=== PATIENT | male | born 1990 | race Caucasian/White ===

== ENCOUNTER 2017-07-14 11:09 | Inpatient (IN) | payer OTHER ==
[2017-07-14 13:40] VITALS: BMI 21.4
--- NOTE | 2017-07-14 13:52 | HP ---
COWS - Scale Resting Pulse: 1= [place] 81-100 Sweatin=Flushed/Facial Moisture Restless Observation: 3= Extraneous Movement Pupil Size: 2= Moderately Dilated Bone or Joint Aches: 2= Severe Diffuse Aches Runny Nose/ Eye Tearin= Runny Nose/Eyes GI Upset > 30mins: 3= Vomiting/Diarrhea Tremor Observation: 2= Slight Tremor Visible Yawning Observation: 2= >3x During Session Anxiety or Irritability: 2=Irritable/Anxious Goose Flesh Skin: 0=Smooth Skin COWS Score: 21 Admission ROS BHS - HPI Chief Complaint: I NEED HELP TO STOP USING PERCOCET OXYCONTIN,KLONOPIN,SEEKING DETOX,WITHDRAWAL SYMPTOM LAST DETOX [facility] 2011 DENIED MEDICAL PROBLEM NICOTINE DEPENDENCE LONGEST PERIOD OF SOBRIETY 3 YEARS CONTUSION OF LEFT ORBIT ON 07/09/17 SEEN AT [facility] Allergies/Adverse Reactions: Allergies Allergy/AdvReac Type Severity Reaction Status Date / Time No Known Allergies Allergy Verified 07/14/17 13:43 History of Present Illness: THIS 26 YEARS OLD MALE WITH PERCOCET XANAX AND MARIJUANA DEPENDENCE SEEKING DETOX MENTIONED ABOVE SEEKING DETOX ANXIETY,DEPRESSION AND INSOMNIA Exam Limitations: No Limitations - Ebola screening Have you traveled outside of the country in the last 21 days: No (N) Have you had contact with anyone from an Ebola affected area: No Have you been sick,other than usual withdrawal symptoms: No Do you have a fever: No - Review of Systems Constitutional: Chills, Diaphoresis, Loss of Appetite, Malaise, Night Sweats, Changes in sleep, Weakness, Unintentional Wgt. Loss EENT: reports: Tearing, Nose Congestion Respiratory: reports: No Symptoms reported Cardiac: reports: No Symptoms Reported GI: reports: Diarrhea, Nausea, Vomiting : reports: No Symptoms Reported Musculoskeletal: reports: Back Pain, Muscle Pain, Muscle Weakness Integumentary: reports: Dryness Neuro: reports: Headache, Tremors Endocrine: reports: No Symptoms Reported Hematology: reports: No Symptoms Reported Psychiatric: reports: No Sypmtoms Reported, Judgement Intact, Mood/Affect Appropiate, Orientated x3 (INSOMNIA), Anxious, Depressed Patient History - Patient Medical History Hx Anemia: No Hx Asthma: No Hx Chronic Obstructive Pulmonary Disease (COPD): No Hx Cancer: No Hx Cardiac Disorders: No Hx Congestive Heart Failure: No Hx Hypertension: No Hx Hypercholesterolemia: No Hx Pacemaker: No HX Cerebrovascular Accident: No Hx Seizures: No Hx Dementia: No Hx Diabetes: No Hx Gastrointestinal Disorders: No Hx Liver Disease: No Hx Genitourinary Disorders: No Hx Sexually Transmitted Disorders: No Hx Renal Disease (ESRD): No Hx Thyroid Disease: No Hx Human Immunodeficiency Virus (HIV): No (NEGATIVE LAST 07/08/17 TO 07/11/17) Hx Hepatitis C: No Hx Depression: Yes (INSOMNIA) Hx Suicide Attempt: No Hx Bipolar Disorder: No Hx Schizophrenia: No Other Medical History: NO SUICIDAL,MO HONICIDAL - Patient Surgical History Past Surgical History: No - Smoking Cessation Smoking history: Current every day smoker Have you smoked in the past 12 months: Yes Aproximately how many cigarettes per day: 3 Cigars Per Day: 0 Hx Chewing Tobacco Use: No Initiated information on smoking cessation: Yes 'Breaking Loose' booklet given: 07/14/17 - Substance & Tx. History Hx Alcohol Use: Yes Hx Substance Use: Yes Substance Use Type: Alcohol, Marijuana, Opiates, Tranquilizers Hx Substance Use Treatment: Yes ([facility] 2003) - Substances Abused Benzodiazepine (Klonopin) Route: Oral Frequency: 1-3 times last 30 days Amount used: 2mg Age of first use: 26 Date of Last Use: 07/13/17 Marijuana/Hashish Route: Smoking Frequency: 1-3 times last 30 days Amount used: 1 blunt Age of first use: 17 Date of Last Use: 06/23/17 percocet/oxycodone Route: Oral Frequency: Daily Amount used: 10-15 pills Age of first use: 20 Date of Last Use: 07/13/17 Family Disease History - Family Disease History Family History: Denies Admission Physical Exam S - Vital Signs Vital Signs: Vital Signs - 24 hr 07/14/17 13:38 Temperature 96.2 F L Pulse Rate 20 L Respiratory 69 H Rate Blood Pressure 114/62 - Physical General Appearance: Yes: Moderate Distress, Tremorous, Irritable, Sweating HEENTM: Yes: Hearing grossly Normal, Normal ENT Inspection, SHARRI, Pharynx Normal Respiratory: Yes: Lungs Clear, Normal Breath Sounds, No Respiratory Distress Neck: Yes: Within Normal Limits, Supple, Trachea in good position Breast: Yes: Within Normal Limits Cardiology: Yes: Within Normal Limits, Regular Rhythm, Regular Rate, S1, S2 Abdominal: Yes: Within Normal Limits, Normal Bowel Sounds, Non Tender, Soft Genitourinary: Yes: Within Normal Limits Back: Yes: Within Normal Limits, Normal Inspection, Muscle Spasm Musculoskeletal: Yes: Within Normal Limits, Back pain, Joint Stiffness, Muscle Pain Extremities: Yes: Tremors Neurological: Yes: clinical consultant II-XII NML intact, Fully Oriented, Alert, Motor Strength 5/5 Integumentary: Yes: Dry Lymphatic: Yes: Within Normal Limits - Diagnostic (1) Opioid dependence with withdrawal Current Visit: Yes Status: Acute (2) Uncomplicated sedative, hypnotic or anxiolytic withdrawal Current Visit: Yes Status: Acute (3) Marijuana dependence Current Visit: Yes Status: Chronic (4) Nicotine dependence Current Visit: Yes Status: Chronic (5) Contusion of left orbit Current Visit: Yes Status: Acute (6) Anxiety and depression Current Visit: Yes Status: Acute Cleared for Admission [facility] - Detox or Rehab [facility] Level of Care: Medically Managed Detox Regimen/Protocol: Methadone [facility] Breath Alcohol Content Breath Alcohol Content: 0 Urine Drug Screen - Results Drug Screen Negative: No Urine Drug Screen Results: THC-Marijuana, BZO-Benzodiazepines, OXY-Oxycodone
[2017-07-14] MEDS ORDERED: MAG HYDROX/AL HYDROX/SIMETH 30 ML UNIT-DOSE CUP PO PRN (14:12)
[2017-07-14] MEDS ORDERED: MAGNESIUM CITRATE 300 ML BOTTLE PO PRN (14:12)
[2017-07-14] MEDS ORDERED: NICOTINE POLACRILEX 2 MG GUM BUC PRN (14:12)
[2017-07-14] MEDS ORDERED: LOPERAMIDE HCL 2 MG CAPSULE PO PRN (14:12)
[2017-07-14] MEDS ORDERED: guaiFENesin/D-METHORPHAN HB 10 ML UNIT-DOSE CUPS PO PRN (14:12)
[2017-07-14] MEDS ORDERED: P-EPHED 60MG/TRIPROLIDI 2.5MG TABLET PO PRN (14:12)
[2017-07-14] MEDS ORDERED: MAGNESIUM HYDROX 2400MG/30ML ORAL SUSPENSION 30 ML CUP PO PRN (14:12)
[2017-07-14] MEDS ORDERED: IBUPROFEN 400 MG TABLET (FP) PO PRN (14:12)
[2017-07-14] MEDS ORDERED: MENTHOL/PHENOL 1 EACH UD MM PRN (14:12)
[2017-07-14] MEDS ORDERED: METHADONE HCL 10 MG TABLET (FOR DETOX USE ONLY) PO ONE ×2 (14:25→23:00)
[2017-07-14] MEDS: diazePAM 5 MG TABLET PO PRN ×2 (15:57→22:49)
[2017-07-14] MEDS: NICOTINE 21 MG/24 HOURS TOPICAL PATCH TD SCH (15:58)
--- NOTE | 2017-07-14 16:27 | CONSULT ---
[facility] Psychiatric Consult - Data Date of interview: 07/14/17 Admission source: [facility] Identifying data: Pt. 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 This is patient's first admission to [facility] [place]. Pt. admitted to detox for opiate dependence. Substance Abuse History: Opiate- norco pills 10 -20 tablets daily. First used at 20. Last used 07/13/17. Marijuana- First used at 17 years of age. Usage- 1-2 times every two months. Benzodiazepine- PCP prescribed him klonopin for anxiety Medical History: Denies. Psychiatric History: Pt. denies h/o psychiatric hospitalizations, suicide attempts, and outpatient care. Physical/Sexual Abuse/Trauma History: Denies. Mental Status Exam - Mental Status Exam Alert and Oriented to: Time, Place, Person Cognitive Function: Good Patient Appearance: Well Groomed Mood: Euthymic Affect: Mood Congruent Patient Behavior: Appropriate, Cooperative Speech Pattern: Clear, Appropriate Voice Loudness: Normal Thought Process: Goal Oriented Thought Disorder: Not Present Hallucinations: Denies Suicidal Ideation: Denies Homicidal Ideation: Denies Insight/Judgement: Poor Sleep: Poorly Appetite: Fair Muscle strength/Tone: Normal Gait/Station: Normal Psychiatric Findings - Problem List ([place] 1, 2,3) (1) Marijuana dependence Current Visit: Yes Status: Chronic (2) Nicotine dependence Current Visit: Yes Status: Chronic (3) Opioid dependence with withdrawal Current Visit: Yes Status: Acute (4) Substance-induced sleep disorder Current Visit: Yes Status: Acute (5) Uncomplicated sedative, hypnotic or anxiolytic withdrawal Current Visit: Yes Status: Acute - Initial Treatment Plan Initial Treatment Plan: Psychoeducation provided. Detoxification in progress. Ambien 10mg qhs prn ordered. Benefits and side effects (sleep walking) discussed. Pt. reports favorable effect from previously taking ambien. Verbal consent given. Will continue to monitor.
[2017-07-14 17:07] LABS: URINE APPEARANCE CLEAR; URINE BILIRUBIN NEGATIVE (NEGATIVE); URINE BLOOD NEGATIVE (NEGATIVE); URINE COLOR LTYELLOW; URINE GLUCOSE (UA) NEGATIVE (NEGATIVE); URINE KETONE NEGATIVE (NEGATIVE); URINE LEUK ESTERASE NEGATIVE (NEGATIVE); URINE NITRITE NEGATIVE (NEGATIVE); URINE PROTEIN NEGATIVE (NEGATIVE); URINE UROBILINOGEN NEGATIVE mg/dL (0.2-1.0)
[2017-07-14] MEDS: THIAMINE HCL 100 MG TABLET (FP) PO SCH (22:18)
[2017-07-14] MEDS: ZOLPIDEM TARTRATE 10 MG TABLET (PARK CARE ONLY) PO PRN (22:18)
[2017-07-15] MEDS: hydrOXYzine PAMOATE 50 MG CAPSULE (FP) PO PRN ×2 (00:39→13:53)
--- NOTE | 2017-07-15 09:48 | EKG ---
Test Reason : Blood Pressure : / mmHG Vent. Rate : 064 BPM Atrial Rate : 064 BPM P-R Int : 126 ms QRS Dur : 100 ms QT Int : 382 ms P-R-T Axes : 058 077 053 degrees QTc Int : 394 ms NORMAL SINUS RHYTHM NORMAL ECG NO PREVIOUS ECGS AVAILABLE Confirmed by NORRIS TINOCO, DRAGAN ([id number]) on 07/15/2017 9:47:32 AM Referred By: Confirmed By:DRAGAN PISANO MD
[2017-07-15] MEDS ORDERED: METHADONE HCL 10 MG TABLET (FOR DETOX USE ONLY) PO ONE (10:00)
[2017-07-15] MEDS: diazePAM 5 MG TABLET PO PRN ×2 (10:22→21:32)
[2017-07-15] MEDS: PRENATAL VITAMINS W/ FOLIC ACID TABLET (FP) PO SCH (10:22)
[2017-07-15] MEDS: NICOTINE 21 MG/24 HOURS TOPICAL PATCH TD SCH (10:23)
[2017-07-15 10:25] LABS: HEMATOCRIT 42.3 % (35.4-49); HEMOGLOBIN 14.5 GM/dL (11.7-16.9); MCH 30.9 pg (25.7-33.7); MCHC 34.2 g/dl (32.0-35.9); MEAN CELL VOLUME 90.4 fl (80-96); MEAN PLT VOLUME 8.5 fl (7.5-11.1); PLATELET COUNT 319 K/MM3 (134-434); RBC 4.68 M/mm3 (4.00-5.60); RDW 13.9 % (11.9-15.9); WHITE BLOOD COUNT 3.4 K/mm3 (4.0-10.0)
[2017-07-15 10:35] LABS: ALBUMIN 4.4 g/dl (3.4-5.0); ANION GAP 6 (8-16); BLOOD UREA NITROGEN 11 mg/dL (7-18); CHLORIDE 106 mmol/L (98-107); CO2 29 mmol/L (21-32); GLUCOSE,RANDOM 94 mg/dL (74-106); POTASSIUM 4.4 mmol/L (3.5-5.1); SGOT/AST 7 U/L (15-37); SGPT/ALT 15 U/L (12-78); SODIUM 141 mmol/L (136-145)
[2017-07-15 10:38] LABS: ALK PHOS 84 U/L (45-117); BILIRUBIN,TOTAL 0.5 mg/dL (0.2-1.0); CALCIUM 9.1 mg/dL (8.5-10.1); CREATININE 0.7 mg/dL (0.7-1.3); TOT PROT 6.9 g/dl (6.4-8.2)
--- NOTE | 2017-07-15 12:29 | PN ---
BHS COWS - Scale Resting Pulse: 0= [place] 80 or Below Sweatin= Chills/Flushing Restless Observation: 1= Difficult to Sit Still Pupil Size: 0= Normal to Room Light Bone or Joint Aches: 1= Mild Discomfort Runny Nose/ Eye Tearin= None GI Upset > 30mins: 1= Stomach Cramp Tremor Observation of Outstretched Hands: 2= Slight Tremor Visible Yawning Observation: 1= 1-2x During Session Anxiety or Irritability: 2=Irritable/Anxious Goose Flesh Skin: 3=Piloerection COWS Score: 12 BHS Progress Note (SOAP) Subjective: Interrupted Sleep, Tremors, Fatigue, Anxious. Objective: PATIENT A & O X 2 (UNCERTAIN ABOUT CURRENT DAY / DATE). PATIENT OBSERVED AMBULATING ON UNIT. NO ACUTE DISTRESS. 07/15/17 12:31 Vital Signs Temperature 96.1 F L 07/15/17 10:53 Pulse Rate 72 07/15/17 10:53 Respiratory Rate 16 07/15/17 10:53 Blood Pressure 99/56 07/15/17 10:53 O2 Sat by Pulse Oximetry (%) Laboratory Tests 07/14/17 07/15/17 07/15/17 16:00 05:50 05:50 WBC 3.4 L RBC 4.68 Hgb 14.5 Hct 42.3 MCV 90.4 MCH 30.9 MCHC 34.2 RDW 13.9 Plt Count 319 MPV 8.5 Sodium 141 Potassium 4.4 Chloride 106 Carbon Dioxide 29 Anion Gap 6 L BUN 11 Creatinine 0.7 Creat Clearance w eGFR > 60 Random Glucose 94 Calcium 9.1 Total Bilirubin 0.5 AST 7 L ALT 15 Alkaline Phosphatase 84 Total Protein 6.9 Albumin 4.4 Urine Color Ltyellow Urine Appearance Clear Urine pH 7.0 Ur Specific [place] 1.015 Urine Protein Negative Urine Glucose (UA) Negative Urine Ketones Negative Urine Blood Negative Urine Nitrite Negative Urine Bilirubin Negative Urine Urobilinogen Negative Ur Leukocyte Esterase Negative RPR Titer HIV 1&2 Antibody Screen HIV P24 Antigen 07/15/17 07/15/17 05:50 05:50 WBC RBC Hgb Hct MCV MCH MCHC RDW Plt Count MPV Sodium Potassium Chloride Carbon Dioxide Anion Gap BUN Creatinine Creat Clearance w eGFR Random Glucose Calcium Total Bilirubin AST ALT Alkaline Phosphatase Total Protein Albumin Urine Color Urine Appearance Urine pH Ur Specific [place] Urine Protein Urine Glucose (UA) Urine Ketones Urine Blood Urine Nitrite Urine Bilirubin Urine Urobilinogen Ur Leukocyte Esterase RPR Titer Nonreactive HIV 1&2 Antibody Screen Negative HIV P24 Antigen Negative LABS NOTED. Assessment: 07/15/17 12:31 WITHDRAWAL SYMPTOMS. Plan: CONTINUE DETOX. INCREASE DAILY PO FLUID INTAKE.
[2017-07-15] MEDS: CYCLOBENZAPRINE HCL 10 MG TABLET (FP) PO PRN (13:53)
[2017-07-15] MEDS: THIAMINE HCL 100 MG TABLET (FP) PO SCH (21:32)
[2017-07-15] MEDS: ZOLPIDEM TARTRATE 10 MG TABLET (PARK CARE ONLY) PO PRN (21:35)
[2017-07-16] MEDS ORDERED: METHADONE HCL 5 MG TABLET (FOR DETOX USE ONLY) PO ONE (10:00)
[2017-07-16] MEDS: NICOTINE 21 MG/24 HOURS TOPICAL PATCH TD SCH (10:32)
[2017-07-16] MEDS: PRENATAL VITAMINS W/ FOLIC ACID TABLET (FP) PO SCH (10:32)
[2017-07-16] MEDS: diazePAM 5 MG TABLET PO PRN ×3 (10:32→22:30)
[2017-07-16] MEDS: CYCLOBENZAPRINE HCL 10 MG TABLET (FP) PO PRN ×2 (13:22→22:30)
[2017-07-16] MEDS: hydrOXYzine PAMOATE 50 MG CAPSULE (FP) PO PRN (14:10)
[2017-07-16] MEDS: ACETAMINOPHEN 325 MG TABLET (FP) PO PRN (17:27)
--- NOTE | 2017-07-16 18:08 | PN ---
BHS COWS - Scale Resting Pulse: 0= [place] 80 or Below Sweatin= Chills/Flushing Restless Observation: 1= Difficult to Sit Still Pupil Size: 0= Normal to Room Light Bone or Joint Aches: 0= None Runny Nose/ Eye Tearin= Nasal Congestion GI Upset > 30mins: 0= None Tremor Observation of Outstretched Hands: 2= Slight Tremor Visible Yawning Observation: 1= 1-2x During Session Anxiety or Irritability: 2=Irritable/Anxious Goose Flesh Skin: 3=Piloerection COWS Score: 11 BHS Progress Note (SOAP) Subjective: Tremors, Fatigue, Interrupted Sleep, Anxious. Objective: PATIENT A & O X 3, OBSERVED AMBULATING ON UNIT. NO ACUTE DISTRESS. 07/16/17 18:07 Vital Signs Temperature 97.8 F 07/16/17 14:30 Pulse Rate 64 07/16/17 14:30 Respiratory Rate 16 07/16/17 14:30 Blood Pressure 110/63 07/16/17 14:30 O2 Sat by Pulse Oximetry (%) Laboratory Tests 07/14/17 07/15/17 07/15/17 16:00 05:50 05:50 WBC 3.4 L RBC 4.68 Hgb 14.5 Hct 42.3 MCV 90.4 MCH 30.9 MCHC 34.2 RDW 13.9 Plt Count 319 MPV 8.5 Sodium 141 Potassium 4.4 Chloride 106 Carbon Dioxide 29 Anion Gap 6 L BUN 11 Creatinine 0.7 Creat Clearance w eGFR > 60 Random Glucose 94 Calcium 9.1 Total Bilirubin 0.5 AST 7 L ALT 15 Alkaline Phosphatase 84 Total Protein 6.9 Albumin 4.4 Urine Color Ltyellow Urine Appearance Clear Urine pH 7.0 Ur Specific [place] 1.015 Urine Protein Negative Urine Glucose (UA) Negative Urine Ketones Negative Urine Blood Negative Urine Nitrite Negative Urine Bilirubin Negative Urine Urobilinogen Negative Ur Leukocyte Esterase Negative RPR Titer HIV 1&2 Antibody Screen HIV P24 Antigen 07/15/17 07/15/17 05:50 05:50 WBC RBC Hgb Hct MCV MCH MCHC RDW Plt Count MPV Sodium Potassium Chloride Carbon Dioxide Anion Gap BUN Creatinine Creat Clearance w eGFR Random Glucose Calcium Total Bilirubin AST ALT Alkaline Phosphatase Total Protein Albumin Urine Color Urine Appearance Urine pH Ur Specific [place] Urine Protein Urine Glucose (UA) Urine Ketones Urine Blood Urine Nitrite Urine Bilirubin Urine Urobilinogen Ur Leukocyte Esterase RPR Titer Nonreactive HIV 1&2 Antibody Screen Negative HIV P24 Antigen Negative LABS NOTED. Assessment: 07/16/17 18:07 WITHDRAWAL SYMPTOMS. Plan: CONTINUE DETOX. INCREASE DAILY PO FLUID INTAKE.
[2017-07-16] MEDS: THIAMINE HCL 100 MG TABLET (FP) PO SCH (22:30)
[2017-07-16] MEDS: ZOLPIDEM TARTRATE 10 MG TABLET (PARK CARE ONLY) PO PRN (22:30)
[2017-07-17] MEDS: hydrOXYzine PAMOATE 50 MG CAPSULE (FP) PO PRN ×2 (01:37→13:45)
[2017-07-17] MEDS ORDERED: METHADONE HCL 5 MG TABLET (FOR DETOX USE ONLY) PO ONE (10:00)
[2017-07-17] MEDS: diazePAM 5 MG TABLET PO PRN ×2 (10:48→13:44)
[2017-07-17] MEDS: PRENATAL VITAMINS W/ FOLIC ACID TABLET (FP) PO SCH (10:48)
[2017-07-17] MEDS: NICOTINE 21 MG/24 HOURS TOPICAL PATCH TD SCH (10:49)
[2017-07-17] MEDS: CYCLOBENZAPRINE HCL 10 MG TABLET (FP) PO PRN ×2 (14:59→22:25)
--- NOTE | 2017-07-17 16:40 | PN ---
BHS Progress Note (SOAP) Subjective: Tremor, interrupted sleep Objective: 07/17/17 16:39 Last Vital Signs Temp Pulse Resp BP Pulse Ox 97 F L 80 18 123/63 07/17/17 14:24 07/17/17 14:24 07/17/17 14:24 07/17/17 14:24 Laboratory Tests 07/14/17 07/15/17 07/15/17 16:00 05:50 05:50 WBC 3.4 L RBC 4.68 Hgb 14.5 Hct 42.3 MCV 90.4 MCH 30.9 MCHC 34.2 RDW 13.9 Plt Count 319 MPV 8.5 Sodium 141 Potassium 4.4 Chloride 106 Carbon Dioxide 29 Anion Gap 6 L BUN 11 Creatinine 0.7 Creat Clearance w eGFR > 60 Random Glucose 94 Calcium 9.1 Total Bilirubin 0.5 AST 7 L ALT 15 Alkaline Phosphatase 84 Total Protein 6.9 Albumin 4.4 Urine Color Ltyellow Urine Appearance Clear Urine pH 7.0 Ur Specific [place] 1.015 Urine Protein Negative Urine Glucose (UA) Negative Urine Ketones Negative Urine Blood Negative Urine Nitrite Negative Urine Bilirubin Negative Urine Urobilinogen Negative Ur Leukocyte Esterase Negative RPR Titer HIV 1&2 Antibody Screen HIV P24 Antigen 07/15/17 07/15/17 05:50 05:50 WBC RBC Hgb Hct MCV MCH MCHC RDW Plt Count MPV Sodium Potassium Chloride Carbon Dioxide Anion Gap BUN Creatinine Creat Clearance w eGFR Random Glucose Calcium Total Bilirubin AST ALT Alkaline Phosphatase Total Protein Albumin Urine Color Urine Appearance Urine pH Ur Specific [place] Urine Protein Urine Glucose (UA) Urine Ketones Urine Blood Urine Nitrite Urine Bilirubin Urine Urobilinogen Ur Leukocyte Esterase RPR Titer Nonreactive HIV 1&2 Antibody Screen Negative HIV P24 Antigen Negative Labs noted Assessment: 07/17/17 16:40 Withdrawal symptoms Plan: Continue detox Encouraged PO hydration (water)
[2017-07-17] MEDS: ZOLPIDEM TARTRATE 10 MG TABLET (PARK CARE ONLY) PO PRN (21:57)
[2017-07-17] MEDS: THIAMINE HCL 100 MG TABLET (FP) PO SCH (22:24)
[2017-07-18] MEDS: hydrOXYzine PAMOATE 50 MG CAPSULE (FP) PO PRN ×5 (00:39→22:24)
[2017-07-18] MEDS: CYCLOBENZAPRINE HCL 10 MG TABLET (FP) PO PRN ×3 (05:30→18:06)
[2017-07-18] MEDS: ACETAMINOPHEN 325 MG TABLET (FP) PO PRN (07:45)
[2017-07-18] MEDS ORDERED: METHADONE HCL 10 MG TABLET (FOR DETOX USE ONLY) PO ONE (10:00)
[2017-07-18] MEDS: PRENATAL VITAMINS W/ FOLIC ACID TABLET (FP) PO SCH (10:37)
[2017-07-18] MEDS: NICOTINE 21 MG/24 HOURS TOPICAL PATCH TD SCH (10:38)
--- NOTE | 2017-07-18 12:15 | PN ---
BHS Progress Note (SOAP) Subjective: ANXIETY,SWEATS,TREMORS,HOT/COLD CHILLS. Objective: 07/18/17 12:15 Vital Signs Temperature 97.7 F 07/18/17 10:15 Pulse Rate 76 07/18/17 10:15 Respiratory Rate 16 07/18/17 10:15 Blood Pressure 137/60 07/18/17 10:15 O2 Sat by Pulse Oximetry (%) Laboratory Last Values WBC 3.4 K/mm3 (4.0-10.0) L 07/15/17 05:50 RBC 4.68 M/mm3 (4.00-5.60) 07/15/17 05:50 Hgb 14.5 GM/dL (11.7-16.9) 07/15/17 05:50 Hct 42.3 % (35.4-49) 07/15/17 05:50 MCV 90.4 fl (80-96) 07/15/17 05:50 MCH 30.9 pg (25.7-33.7) 07/15/17 05:50 MCHC 34.2 g/dl (32.0-35.9) 07/15/17 05:50 RDW 13.9 % (11.9-15.9) 07/15/17 05:50 Plt Count 319 K/MM3 (134-434) 07/15/17 05:50 MPV 8.5 fl (7.5-11.1) 07/15/17 05:50 Sodium 141 mmol/L (136-145) 07/15/17 05:50 Potassium 4.4 mmol/L (3.5-5.1) 07/15/17 05:50 Chloride 106 mmol/L (98-107) 07/15/17 05:50 Carbon Dioxide 29 mmol/L (21-32) 07/15/17 05:50 Anion Gap 6 (8-16) L 07/15/17 05:50 BUN 11 mg/dL (7-18) 07/15/17 05:50 Creatinine 0.7 mg/dL (0.7-1.3) 07/15/17 05:50 Creat Clearance w eGFR > 60 (>60) 07/15/17 05:50 Random Glucose 94 mg/dL (74-106) 07/15/17 05:50 Calcium 9.1 mg/dL (8.5-10.1) 07/15/17 05:50 Total Bilirubin 0.5 mg/dL (0.2-1.0) 07/15/17 05:50 AST 7 U/L (15-37) L 07/15/17 05:50 ALT 15 U/L (12-78) 07/15/17 05:50 Alkaline Phosphatase 84 U/L (45-117) 07/15/17 05:50 Total Protein 6.9 g/dl (6.4-8.2) 07/15/17 05:50 Albumin 4.4 g/dl (3.4-5.0) 07/15/17 05:50 Urine Color Ltyellow 07/14/17 16:00 Urine Appearance Clear 07/14/17 16:00 Urine pH 7.0 (5.0-8.0) 07/14/17 16:00 Ur Specific [place] 1.015 (1.001-1.035) 07/14/17 16:00 Urine Protein Negative (NEGATIVE) 07/14/17 16:00 Urine Glucose (UA) Negative (NEGATIVE) 07/14/17 16:00 Urine Ketones Negative (NEGATIVE) 07/14/17 16:00 Urine Blood Negative (NEGATIVE) 07/14/17 16:00 Urine Nitrite Negative (NEGATIVE) 07/14/17 16:00 Urine Bilirubin Negative (NEGATIVE) 07/14/17 16:00 Urine Urobilinogen Negative mg/dL (0.2-1.0) 07/14/17 16:00 Ur Leukocyte Esterase Negative (NEGATIVE) 07/14/17 16:00 RPR Titer Nonreactive (NONREACTIVE) 07/15/17 05:50 HIV 1&2 Antibody Screen Negative 07/15/17 05:50 HIV P24 Antigen Negative 07/15/17 05:50 Assessment: 07/18/17 12:15 WITHDRAWAL SX Plan: CONTINUE DETOX
[2017-07-18] MEDS: THIAMINE HCL 100 MG TABLET (FP) PO SCH (22:24)
[2017-07-19] MEDS: CYCLOBENZAPRINE HCL 10 MG TABLET (FP) PO PRN (05:57)
[2017-07-19] MEDS ORDERED: METHADONE HCL 5 MG TABLET (FOR DETOX USE ONLY) PO ONE (06:00)
[2017-07-19 06:22] VITALS: BP 103/59; PULSE 70; TEMP 97
[2017-07-19] MEDS: NICOTINE 21 MG/24 HOURS TOPICAL PATCH TD SCH (10:53)
[2017-07-19] MEDS: PRENATAL VITAMINS W/ FOLIC ACID TABLET (FP) PO SCH (10:53)
--- NOTE | 2017-07-19 14:32 | DS ---
[facility] Detox Discharge Summary Admission Date: 07/14/17 Discharge Date: 07/19/17 - History Present History: Cannabis Dependence, Opioid Dependence, Sedative Dependence Additional Comments: DETOX COMPLETED. ALERT O X3. NAD. Pertinent Past History: SEE DX BELOW - Physical Exam Results Vital Signs: Vital Signs Temperature 97.0 F L 07/19/17 06:21 Pulse Rate 70 07/19/17 06:21 Respiratory Rate 18 07/19/17 06:21 Blood Pressure 103/59 07/19/17 06:21 O2 Sat by Pulse Oximetry (%) Pertinent Admission Physical Exam Findings: WITHDRAWAL SX Laboratory Last Values WBC 3.4 K/mm3 (4.0-10.0) L 07/15/17 05:50 RBC 4.68 M/mm3 (4.00-5.60) 07/15/17 05:50 Hgb 14.5 GM/dL (11.7-16.9) 07/15/17 05:50 Hct 42.3 % (35.4-49) 07/15/17 05:50 MCV 90.4 fl (80-96) 07/15/17 05:50 MCH 30.9 pg (25.7-33.7) 07/15/17 05:50 MCHC 34.2 g/dl (32.0-35.9) 07/15/17 05:50 RDW 13.9 % (11.9-15.9) 07/15/17 05:50 Plt Count 319 K/MM3 (134-434) 07/15/17 05:50 MPV 8.5 fl (7.5-11.1) 07/15/17 05:50 Sodium 141 mmol/L (136-145) 07/15/17 05:50 Potassium 4.4 mmol/L (3.5-5.1) 07/15/17 05:50 Chloride 106 mmol/L (98-107) 07/15/17 05:50 Carbon Dioxide 29 mmol/L (21-32) 07/15/17 05:50 Anion Gap 6 (8-16) L 07/15/17 05:50 BUN 11 mg/dL (7-18) 07/15/17 05:50 Creatinine 0.7 mg/dL (0.7-1.3) 07/15/17 05:50 Creat Clearance w eGFR > 60 (>60) 07/15/17 05:50 Random Glucose 94 mg/dL (74-106) 07/15/17 05:50 Calcium 9.1 mg/dL (8.5-10.1) 07/15/17 05:50 Total Bilirubin 0.5 mg/dL (0.2-1.0) 07/15/17 05:50 AST 7 U/L (15-37) L 07/15/17 05:50 ALT 15 U/L (12-78) 07/15/17 05:50 Alkaline Phosphatase 84 U/L (45-117) 07/15/17 05:50 Total Protein 6.9 g/dl (6.4-8.2) 07/15/17 05:50 Albumin 4.4 g/dl (3.4-5.0) 07/15/17 05:50 Urine Color Ltyellow 07/14/17 16:00 Urine Appearance Clear 07/14/17 16:00 Urine pH 7.0 (5.0-8.0) 07/14/17 16:00 Ur Specific [place] 1.015 (1.001-1.035) 07/14/17 16:00 Urine Protein Negative (NEGATIVE) 07/14/17 16:00 Urine Glucose (UA) Negative (NEGATIVE) 07/14/17 16:00 Urine Ketones Negative (NEGATIVE) 07/14/17 16:00 Urine Blood Negative (NEGATIVE) 07/14/17 16:00 Urine Nitrite Negative (NEGATIVE) 07/14/17 16:00 Urine Bilirubin Negative (NEGATIVE) 07/14/17 16:00 Urine Urobilinogen Negative mg/dL (0.2-1.0) 07/14/17 16:00 Ur Leukocyte Esterase Negative (NEGATIVE) 07/14/17 16:00 RPR Titer Nonreactive (NONREACTIVE) 07/15/17 05:50 HIV 1&2 Antibody Screen Negative 07/15/17 05:50 HIV P24 Antigen Negative 07/15/17 05:50 - Treatment Hospital Course: Detox Protocol Followed, Detoxed Safely, Responded well, Discharged Condition Good Patient has Accepted a Rehab Referral to: DECLINED - Medication Discharge Medications: Ambulatory Orders NK [No Known Home Medication] 07/14/17 - Diagnosis (1) Opioid dependence with withdrawal Status: Acute (2) Uncomplicated sedative, hypnotic or anxiolytic withdrawal Status: Acute (3) Nicotine dependence Status: Acute Qualifiers: Nicotine product type: cigarettes Substance use status: in withdrawal Qualified Code(s): F17.213 - Nicotine dependence, cigarettes, with withdrawal (4) Contusion of left orbit Status: Acute Qualifiers: Encounter type: sequela Qualified Code(s): S05.12XS - Contusion of eyeball and orbital tissues, left eye, sequela (5) Marijuana dependence Status: Acute - AMA Did Patient Leave Against Medical Advice: No
== END 2017-07-19 09:10 | disposition home or self-care (01) | DRG 773 ==
LOC: YASAS 11:09 → Y3N 13:57
PROVIDERS: ADMIT Internal Medicine; ATTEND Internal Medicine
PROC: HZ2ZZZZ Detoxification Services for Substance Abuse Treatment (ICD-10-PCS; principal; 2017-07-14)
DX: F11.23 Opioid dependence with withdrawal (principal); F13.230 Sedative, hypnotic or anxiolytic dependence with withdrawal, uncomplicated; F12.20 Cannabis dependence, uncomplicated; F17.213 Nicotine dependence, cigarettes, with withdrawal; F41.8 Other specified anxiety disorders; F19.282 Other psychoactive substance dependence with psychoactive substance-induced sleep disorder; S05.12XS Contusion of eyeball and orbital tissues, left eye, sequela; X58.XXXS Exposure to other specified factors, sequela
CPT/HCPCS: 36415; 80053; 81003; 85027; 86593; 87389; 93005; 93010